=== PATIENT | female | born 1985 | race Caucasian/White ===

== ENCOUNTER 2023-04-30 15:11 | Emergency (ER) | payer BC ==
[~2023-04-30] VITALS: Ht 157.5 cm; Wt 84.8 kg
[2023-04-30 16:35] LABS: BASOPHILS 0.4 % (0-2); BILIRUBIN, URINE NEGATIVE (negative); BLOOD/HGB, URINE MODERATE (Negative); EOSINOPHILS 0.3 % (0-6); HEMATOCRIT 38.1 % (35.0-50.0); HEMOGLOBIN 12.4 g/dL (12.0-18.0); KETONE, URINE NEGATIVE (Negative); LEUK ESTERASE, URINE LARGE (negative); LYMPHOCYTES 10.8 % (24-44); MCH 30.3 (27-36); MCHC 32.7 g/dl (30-36); MCV 92.8 fl (81-99); MONOCYTES 5.7 % (0-12); NEUTROPHILS 82.8 % (39-80); NITRITE, URINE NEGATIVE (negative); PLATELET COUNT 295 K/uL (140-440); RDW 12.9 (10.5-15.0)
[2023-04-30 16:49] LABS: BACTERIA, URINE 1+ /hpf (negative); CASTS, URINE NONE SEEN \\lpf; COLLECTION TYPE, URINE XX; CRYSTALS, URINE NONE SEEN (0-1+); EPITHELIAL CELLS, URINE SQUAMOUS 1+ /lpf (0-1+); REFLEX CULTURE, URINE Yes (No); WHITE BLOOD CELLS, URINE >50 /HPF (0-5)
[2023-04-30 16:51] LABS: ALBUMIN 3.9 g/dL (3.4-5.0); ALBUMIN/GLOBULIN RATIO 0.89 (1.1-2.4); ANION GAP 15.4 (7-21); BILIRUBIN, TOTAL 0.4 ng/dL (0.2-1.0); BUN/CREATININE RATIO 5.43 (6.0-28.6); CALCIUM 9.1 mg/dL (8.5-10.1); CREATININE, SERUM 1.84 mg/dL (0.55-1.02); POTASSIUM 3.4 mmol/L (3.5-5.1); PROTEIN, TOTAL 8.3 g/dL (6.4-8.2)
[2023-04-30] MEDS ORDERED: CEPHALEXIN500 M1 PO (18:24)
[2023-04-30 19:10] VITALS: BP 120/80
== END 2023-04-30 19:11 | disposition home or self-care (01) ==
LOC: ED 15:11
PROVIDERS: Internal Medicine
DX: N39.0 Urinary tract infection, site not specified (principal); Q61.3 Polycystic kidney, unspecified; I12.9 Hypertensive chronic kidney disease with stage 1 through stage 4 chronic kidney disease, or unspecified chronic kidney disease; N18.30 Chronic kidney disease, stage 3 unspecified
CPT/HCPCS: 36415; 74176; 80053; 81001; 83690; 84703; 85025; 87088; 96365; 99284-25; J0696

== ENCOUNTER 2024-03-21 05:40 | Day surgery (SDC) | payer BC ==
[2024-03-12 14:53] VITALS: BP 116/79
[~2024-03-21] VITALS: Ht 157.5 cm; Wt 84.0 kg
--- NOTE | ~2024-03-21 | OR ---
[facility] [address], [place] [address] Draft DATE OF OPERATION: 03/21/2024 SURGEON: Chata Choe MD PREOPERATIVE DIAGNOSIS: Menorrhagia with irregular cycle. POSTOPERATIVE DIAGNOSES: 1. Menorrhagia with irregular cycle. 2. Endometrial polyps. 3. Bicornuate uterus. PROCEDURE: 1. Hysteroscopy. 2. Resection of polyps in both cavities. ANESTHESIA: MAC. ESTIMATED BLOOD LOSS: Minimal. DRAINS: None. INDICATIONS AND FINDINGS: The patient is a 38-year-old female who has a known bicornuate uterus. She has been having abnormal bleeding for the last several years. Ultrasounds showed some heterogeneous tissue in the endometrial cavities. On hysteroscopy, both cavities were evaluated. Both cavities had polyps, though the left side had more than the right. DESCRIPTION OF PROCEDURE: The patient was prepped and draped in the dorsal lithotomy position. A weighted speculum was placed. The anterior lip of the cervix was visualized and grasped with a single-tooth tenaculum. The cavity sounded 9 cm on the right. The endocervical canal was then easily dilated. The MyoSure device was placed and at first, the right cavity was evaluated. There were some small polyps, which were removed after placing the MyoSure Lite. Following this, the left cavity was evaluated. There were multiple small polyps within this cavity. The MyoSure Lite was used to resect all of these as well. Both cavities appeared clear of any lesions at the conclusion of the procedure. The PATIENT NAME: MIKE IZQUIERDO OPERATIVE REPORT DATE OF : [birth year] REPORT #: [id number] PHYSICIAN: CHATA CHOE MD PCP: CHAIM NAVAS REPORT IS CONFIDENTIAL AND NOT TO BE RELEASED WITHOUT AUTHORIZATION [address] [place], [place] [address] Draft MyoSure device was removed. The tenaculum was removed. There was no evidence of any ongoing bleeding from the tenaculum sites. The instruments removed. The patient was taken to the recovery room in good condition. MD ALEXI Hoffmann/VIKYL /[id number] Copies: ~ PATIENT NAME: MIKE IZQUIERDO OPERATIVE REPORT DATE OF : [birth year] REPORT #: [id number] PHYSICIAN: CHATA CHOE MD PCP: CHAIM NAVAS REPORT IS CONFIDENTIAL AND NOT TO BE RELEASED WITHOUT AUTHORIZATION
[~2024-03-21 05:40] MED LIST: CEPHALEXIN500 M1 PO; FLUOXETINE HCL20 M1 PO; IRON325 M1 PO; JYNARQUE PO; LACTATED RINGER'S 1,000 ML IV SCH; LISINOPRIL20 MG PO; OMEPRAZOLE20 MG PO; PEPCID AC20 MG PO; POTASSIUM CHLO10 ME1 PO; VIT D3-VIT K21 EACH PO
[2024-03-21 06:04] VITALS: BP 129/68
[2024-03-21] MEDS ORDERED: KETOROLAC TROMETHAMINE 30 MG/ML VIAL ONE (06:54)
[2024-03-21] MEDS ORDERED: propofoL 200 MG/20 ML VIAL ONE ×2 (06:54→07:33)
[2024-03-21] MEDS ORDERED: ondansetron HCL 4 MG/2 ML VIAL ONE (06:54)
[2024-03-21] MEDS ORDERED: LIDOCAINE HCL 2% 5 ML SDV ONE (06:56)
[2024-03-21] MEDS ORDERED: LIDOCAINE HCL 1% 5 ML SDV INJ ONE (07:00)
[2024-03-21] MEDS ORDERED: METOCLOPRAMIDE HCL 10 MG/2 ML SDV IV SCH (07:00)
[2024-03-21] MEDS ORDERED: IBLOOD GLUCOSE TEST STRIP 1 EA TEST VI PRN (07:00)
[2024-03-21] MEDS ORDERED: FAMOTIDINE 20 MG/ 2 ML VIAL IV SCH (07:00)
[2024-03-21] MEDS ORDERED: fentaNYL citrate 100 MCG/2 ML VIAL ONE (07:02)
[2024-03-21] MEDS ORDERED: IBUPROFEN 800 MG TAB PO PRN (07:45)
[2024-03-21] MEDS ORDERED: METOCLOPRAMIDE HCL 10 MG/2 ML SDV IV PRN (07:45)
[2024-03-21] MEDS ORDERED: PROCHLORPERAZINE EDISYLATE 10 MG/2 ML VIAL IV PRN (07:45)
[2024-03-21] MEDS ORDERED: LACTATED RINGER'S 1,000 ML IV SCH (07:45)
[2024-03-21] MEDS ORDERED: NALOXONE HCL 0.4 MG SYR IV PRN (07:45)
[2024-03-21] MEDS ORDERED: HYDROCODONE/ACETA 5/325 TAB PO PRN (07:45)
[2024-03-21] MEDS ORDERED: ondansetron HCL 4 MG TAB PO PRN (07:45)
[2024-03-21] MEDS ORDERED: MORPHINE SULFATE 10 MG/ML VIAL IV PRN (07:45)
[2024-03-21] MEDS ORDERED: MAGNESIUM HYDROXIDE/AL HYDROX 30 ML CUP PO PRN (07:45)
[2024-03-21] MEDS ORDERED: FAMOTIDINE 20 MG TAB PO PRN (07:45)
[2024-03-21] MEDS ORDERED: ondansetron HCL 4 MG/2 ML VIAL IV PRN (07:45)
[2024-03-21 08:18] VITALS: BP 127/72
--- NOTE | 2024-03-23 12:58 | PATH ---
[facility] [address] [place], [place] [address] Signed SPECIMEN(S): A ENDOMETRIAL POLYP SPECIMEN SOURCE: A. ENDOMETRIAL POLYP CLINICAL HISTORY: Menorrhagia and irregular cycle; bicornuate uterus FINAL PATHOLOGIC DIAGNOSIS: Endometrium, polypectomy: - Secretory phase endometrium; no hyperplasia or neoplasia identified - Fragments of the smooth muscle, suggestive of leiomyoma BRP MICROSCOPIC EXAMINATION: Histologic sections of all submitted blocks are examined by light microscopy. These findings, together with the gross examination, support the pathologic diagnosis. GROSS DESCRIPTION: The specimen, labeled and designated "Kimo Maeacco, endometrial polyp," is received in formalin and consists of irregular shaped membranous and hemorrhagic tissue fragments that aggregate measure 3.5 x 2.7 x 0.4 cm. Entirely submitted in (A1-A2). JS (under the direct supervision of a pathologist) The Gross Description was prepared using a voice recognition system. The report was reviewed for accuracy; however, sound-alike word errors, addition and/or deletions may occur. If there is any question about this report, please contact Client Services. ADDITIONAL NOTES: Immunohistochemical and/or in situ hybridization studies if performed in this case included appropriate positive controls that reacted as expected. This test was developed and its performance characteristics determined by [employer]. It has not been cleared or approved by the U.S. Food and Drug Administration. The FDA has determined that such clearance or approval is not necessary. This test is used for clinical purposes. It should not be regarded as investigational or for research. [employer] is certified under the Clinical Laboratory Improvement Amendments of 1988 (CLIA) as qualified to perform high complexity clinical PATIENT NAME: MIKE IZQUIERDO PATHOLOGY DATE OF : [birth year] REPORT #: [id number] PHYSICIAN: MATT ANTHONY PCP: CHAIM NAVAS REPORT IS CONFIDENTIAL AND NOT TO BE RELEASED WITHOUT AUTHORIZATION [facility] [address] [place], [place] [address] Signed laboratory testing. PERFORMING LABORATORY: Technical component was performed by [employer], [address] [place] [address] (CLIA# [id number]). Professional interpretation was performed by [facility], [address] [place] [address] (CLIA#: [id number]). Diagnostician: Shan Fox MD Pathologist Electronically Signed 03/23/2024 Copies: ~ PATIENT NAME: MIKE IZQUIERDO PATHOLOGY DATE OF : [birth year] REPORT #: [id number] PHYSICIAN: MATT ANTHONY PCP: CHAIM NAVAS REPORT IS CONFIDENTIAL AND NOT TO BE RELEASED WITHOUT AUTHORIZATION
== END 2024-03-21 08:25 | disposition home or self-care (01) ==
LOC: DS 05:40
PROVIDERS: ATTEND Obstetrics & Gynecology
PROC: 0UB98ZZ Excision of Uterus, Via Natural or Artificial Opening Endoscopic (ICD-10-PCS; principal; 2024-03-21 07:30)
DX: N84.0 Polyp of corpus uteri (principal); Q51.3 Bicornate uterus; I12.9 Hypertensive chronic kidney disease with stage 1 through stage 4 chronic kidney disease, or unspecified chronic kidney disease; N18.31 Chronic kidney disease, stage 3a; Z79.899 Other long term (current) drug therapy
CPT/HCPCS: 00952; J1885; J2001; J2405; J2704; J2765; J3010

== ENCOUNTER 2024-06-19 05:51 | Day surgery (SDC) | payer BC ==
[~2024-06-19] VITALS: Ht 157.5 cm; Wt 89.5 kg
[~2024-06-19 05:51] MED LIST changes: +ALLEGRA HIVES180 MG PO
[2024-06-19 06:04] VITALS: BP 146/96
[2024-06-19] MEDS ORDERED: LACTATED RINGER'S 1,000 ML IV ONE (06:29)
[2024-06-19] MEDS ORDERED: ROCURONIUM BROMIDE 50 MG/5 ML SYR ONE (06:29)
[2024-06-19] MEDS ORDERED: fentaNYL citrate 100 MCG/2 ML VIAL ONE (06:29)
[2024-06-19] MEDS ORDERED: SUCCINYLCHOLINE IN 0.9% NACL 200 MG/10 ML SYRINGE ONE (06:29)
[2024-06-19] MEDS ORDERED: propofoL 200 MG/20 ML VIAL ONE ×2 (06:29→07:16)
[2024-06-19] MEDS ORDERED: MIDAZOLAM HCL 2 MG/2 ML VIAL ONE (06:29)
[2024-06-19] MEDS ORDERED: KETOROLAC TROMETHAMINE 30 MG/ML VIAL ONE (06:29)
[2024-06-19] MEDS ORDERED: SUGAMMADEX SODIUM 200 MG/2 ML ML ONE (06:29)
[2024-06-19] MEDS ORDERED: METOCLOPRAMIDE HCL 10 MG/2 ML SDV ONE (06:29)
[2024-06-19] MEDS ORDERED: ondansetron HCL 4 MG/2 ML VIAL ONE (06:29)
[2024-06-19] MEDS ORDERED: FAMOTIDINE 20 MG/ 2 ML VIAL ONE (06:29)
[2024-06-19] MEDS ORDERED: LIDOCAINE HCL 4% 5 ML AMP ONE (06:29)
[2024-06-19] MEDS ORDERED: DEXAMETHASONE SOD PHOS 4 MG/ML VIAL ONE (06:29)
[2024-06-19] MEDS ORDERED: ALBUTEROL SULFATE 8 GM INH ONE (06:32)
[2024-06-19] MEDS ORDERED: ALBUTEROL/IPRATROPIUM 3 ML NEB ONE (06:35)
[2024-06-19] MEDS ORDERED: CEFAZOLIN SODIUM 2 GM/20 ML SYR IV SCH (07:00)
[2024-06-19] MEDS ORDERED: HEParin SOD (PORCINE) 5,000 UNIT/0.5 ML SYR SUB-Q SCH (07:00)
[2024-06-19] MEDS ORDERED: METOCLOPRAMIDE HCL 10 MG/2 ML SDV IV SCH (07:00)
[2024-06-19] MEDS ORDERED: FAMOTIDINE 20 MG/ 2 ML VIAL IV SCH (07:00)
[2024-06-19] MEDS ORDERED: LIDOCAINE HCL 1% 5 ML SDV INJ ONE (07:00)
[2024-06-19] MEDS ORDERED: IBLOOD GLUCOSE TEST STRIP 1 EA TEST VI PRN ×2 (07:00→08:15)
[2024-06-19] MEDS ORDERED: ACETAMINOPHEN 1,000 MG/100 ML VIAL ONE (07:22)
--- NOTE | 2024-06-19 07:31 | NUR ---
PT GONE FOR PROCEDURE. PROVIDED PRAYER.
[2024-06-19] MEDS ORDERED: FLUORESCEIN SODIUM 500 MG/5 ML ML ONE (08:00)
[2024-06-19] MEDS ORDERED: MORPHINE SULFATE 10 MG/ML VIAL IV PRN ×2 (08:15→09:30)
[2024-06-19] MEDS ORDERED: fentaNYL citrate 50 MCG/ML SDV IV PRN (08:15)
[2024-06-19] MEDS ORDERED: NALOXONE HCL 0.4 MG SYR IV PRN ×2 (08:15→09:30)
[2024-06-19] MEDS ORDERED: PROCHLORPERAZINE EDISYLATE 10 MG/2 ML VIAL IV PRN ×2 (08:15→09:30)
[2024-06-19] MEDS ORDERED: droPERidol 5 MG/2 ML VIAL IV PRN (08:15)
[2024-06-19] MEDS ORDERED: METOCLOPRAMIDE HCL 10 MG/2 ML SDV IV PRN ×2 (08:15→09:30)
[2024-06-19] MEDS ORDERED: ondansetron HCL 4 MG/2 ML VIAL IV PRN ×2 (08:15→09:30)
[2024-06-19] MEDS ORDERED: FAMOTIDINE 20 MG TAB PO PRN (09:30)
[2024-06-19] MEDS ORDERED: MAGNESIUM HYDROXIDE/AL HYDROX 30 ML CUP PO PRN (09:30)
[2024-06-19] MEDS ORDERED: ondansetron HCL 4 MG TAB PO PRN (09:30)
[2024-06-19] MEDS ORDERED: ACETAMINOPHEN 500 MG TAB PO PRN (09:30)
[2024-06-19] MEDS ORDERED: LACTATED RINGER'S 1,000 ML IV SCH (09:30)
[2024-06-19] MEDS ORDERED: OXYCODONE HCL 5 MG TAB PO PRN (09:30)
[2024-06-19] MEDS ORDERED: LIDOCAINE 2% VISCOUS 6 ML SYR TOP ONE (09:30)
--- NOTE | 2024-06-19 09:35 | NUR ---
06/19/24 0935 Khushboo Kwan 0915 PT ARRIVED IN PACU NON RESPONSIVE TO NOXIOUS STIMULI WITH OPA IN PLACE. SHIVERING. 0918 PT REACTIVE. OPA REMOVED. MISBAH PAWS AND WARM BLANKETS PLACED. 0925 AT BEDSIDE.
[2024-06-19 10:10] VITALS: BP 125/50
--- NOTE | 2024-06-19 10:25 | NUR ---
1010 pt arrived to day surgery via streacher. pt awake but drowsey. pt reporting 4/10 tolerable pain. pt sipping water. montitors attached. pt breathing equal and unlabored, pt has 2l via o2 via nc. pt in room. pt has call light within reach, water and snacks within reach. 1015 lowered pt to 1l o2 via nasal canulla, pt oxygen sat staying above 90%.
--- NOTE | 2024-06-19 10:53 | NUR ---
1035 CHECKED ON PT, PT REMOVED FROM OXYGEN. PT OXYGEN SATURATION STAYING ABOVE 96% ON RA. PT REPORTING UNTOLERABLE 6/10 PAIN. 1048 PAIN MEDICATIONS GIVEN PER EMAR. WARM BLANKETS APPLIED. CALL LIGHT WITHIN REACH, PERSONAL ITEMS WITHIN REACH. AT BEDSIDE.
[2024-06-19 11:13] VITALS: BP 127/73
--- NOTE | 2024-06-19 11:25 | NUR ---
1111 HOURLY ROUNDING DONE WITH PT. PT REPORTS 5/10 PAIN, DISCUSSED GETTING ANOTHER PAIN PILL. PT WOULD LIKE TO WAIT BEFORE TAKING ANOTHER PAINB PILL. VITALS TAKEN. PT RESTING COMFORTABLY IN BED. PT REPORTS NO NEED TO URINATE YET. WATER FILLED. PT HAS CALL LIGHT WITHIN REACH AND PERSONAL ITEMS WITHIN REACH.
--- NOTE | 2024-06-19 11:39 | NUR ---
1381 pt used call light to alert rn that pt needs to urinate. pt up to bathroom able to ambulate on own. gait steady.
--- NOTE | 2024-06-19 11:44 | NUR ---
1143 PT ABLE TO VOID 300 MLS OF CLEAR YELLOW URINE. PT REPORTS PAIN BEING TOLERABLE. PT GETTING DRESSED WITH ASSISTANCE IN ROOM.
--- NOTE | 2024-06-19 12:07 | NUR ---
1150 DISCHARGE INSTRUCTIONS GONE OVER WITH PT, IV DISCONTINUED. PT HAS NO QUESTIONS AT THIS TIME. PT REPORTING TOLERABLE LEVEL OF PAIN AT THIS TIME. PT REPORTING NO NAUSEA, PT HAS BEEN ABLE TO VOID, AND TOLERATE PO FLUIDS AND SNACKS. 1200 PT DISCHARGED FROM DAY SURGERY VIA WHEELCHAIR TO THE FRONT OF THE HOSPITAL TO PT'S HUSBANDS CAR.
--- NOTE | 2024-06-25 13:06 | OR ---
[facility] [address] [place], [place] [address] Signed DATE OF OPERATION: 06/19/2024 SURGEON: Chata Choe MD DATA WAREHOUSING SPECIALIST: JOSHUA Wall DO PREOPERATIVE DIAGNOSES: 1. Menorrhagia with irregular cycle. 2. Bicornuate uterus. POSTOPERATIVE DIAGNOSES: 1. Menorrhagia with irregular cycle. 2. Bicornuate uterus. 3. Pelvic endometriosis. PROCEDURES: 1. Total laparoscopic hysterectomy with bilateral salpingectomy. 2. Cystoscopy. 3. Excision of pelvic endometriosis. 4. Cannulation of the left ureter. ANESTHESIA: General ET. ESTIMATED BLOOD LOSS: 25 mL. DRAINS: Sanches catheter. INDICATIONS AND FINDINGS: The patient is a 38-year-old female, who has been having worsening problems with her periods. She has not tolerated oral contraceptives. Hysteroscopy did not improve her cycles. She was not a candidate for an IUD given the bicornuate uterus. At the time of surgery, exam under anesthesia was normal. At the time of laparoscopy, she had normal ovaries. She had evidence of prior tubal ligation with some scarring along the tubes. The uterus appeared overall fairly normal other than a slight indentation at the fundus. There was some endometriosis in the left anterior cul-de-sac, the right uterosacral ligament and in the cul-de-sac. Electronically Signed By: CHATA CHOE MD 06/25/24 1306 PATIENT NAME: MIKE IZQUIERDO OPERATIVE REPORT DATE OF : [birth year] REPORT #: [id number] PHYSICIAN: CHATA CHOE MD PCP: CHAIM NAVAS PAC REPORT IS CONFIDENTIAL AND NOT TO BE RELEASED WITHOUT AUTHORIZATION [facility] [address] [place], [place] [address] Signed DESCRIPTION OF PROCEDURE: The patient was prepped and draped in the dorsal lithotomy position. Attention was directed above first such that the VCare could be placed under direct vision. The infraumbilical area was injected with 0.5% Marcaine plain. An incision was made with a knife. Each layer was serially elevated and incised until the fascia was opened and identified. Stay sutures of 0-Vicryl were placed. Peritoneum was opened bluntly and the Kvng placed. The balloon was inflated. There was difficulty keeping the balloon in place and this was removed and the fascial incision was made somewhat smaller with a obwyib-rz-hwrah suture of 0-Vicryl. Kvng was then replaced and the balloon inflated. The pelvis was then evaluated and the planned procedure appeared appropriate. Attention was directed down below, weighted speculum was placed after placement of the Sanches. Cervix was visualized and grasped with single-tooth tenaculum. The right-sided horn was then cannulated and sounded to 9 cm. The endocervical canal was then dilated and the VCare placed and the balloon inflated at the fundus. This was done under direct vision to avoid perforation. Following this, the tenaculum was removed. The cup was fitted over the cervix and a locking cap fitted into place. Attention was then redirected above. The secondary ports were then placed. These were placed laterally, slightly below the level of the umbilicus. Each of these areas was transilluminated, injected with the Marcaine, incision made with a knife and trocars placed under direct vision. The left-sided port was a 5 mm port and the right-sided was a Veress needle with the expanding port. The LigaSure [place] device was then used to excise the patient's left tube. The mesosalpinx was serially coagulated and divided and the specimen removed at the cornu and the specimen retrieved. The utero-ovarian ligament on the patient's right side was then serially coagulated and divided. Attention was then directed back to the left and the utero-ovarian ligament was serially coagulated and divided. The round ligament was divided after coagulation as well. The anterior peritoneum was taken down creating a partial bladder flap. The patient's peritoneum was taken down posteriorly as well. The uterine vessels were then skeletonized and coagulated multiple times and divided. Further dissection was done both posteriorly and anteriorly. There was minimal scarring from her prior C-sections. Attention was then directed to the patient's right side. The tube was removed in the same manner after serially coagulating, dividing the mesosalpinx. The Filshie clamp was mostly adhered to the ovary and this was separately excised and retrieved. The specimen was divided at the cornu and the specimen removed through the port. The round ligament was then serially coagulated and divided. The anterior leaf of the peritoneum incised completing the bladder flap. The peritoneum was taken down posteriorly as well. The uterine vessels were then coagulated and divided multiple times. Further dissection was done both posteriorly and anteriorly. At this point, it was felt the specimen could be from the cuff. Sonicision device was used to separate the vaginal cuff from the specimen. After separation, the specimen was retrieved vaginally and a glove with a wet lap was placed into the vagina allowing the pneumoperitoneum to reaccumulate. The cuff Electronically Signed By: CHATA CHOE MD 06/25/24 1306 PATIENT NAME: SREE WILLARDMIKE MORALES OPERATIVE REPORT DATE OF : [birth year] REPORT #: [id number] PHYSICIAN: CHATA CHOE MD PCP: CHAIM NAVAS REPORT IS CONFIDENTIAL AND NOT TO BE RELEASED WITHOUT AUTHORIZATION [facility] [address] [place], [place] [address] Signed was evaluated and appeared to be hemostatic. The Endo Stitch was then used to close the cuff, taking care to incorporate both the vaginal mucosa as well as the peritoneum. This was begun at the patient's right uterosacral ligament and carried to the patient's left and back. An attempt was made to also do a superficial stitch on the patient's right side slightly above the uterosacral ligament, but at this point, the needle broke. The remaining piece was retrieved and measured 5 mm. The broken piece in the vaginal cuff could not be found. Because of the ongoing bleeding in the superficial area of the right cuff, a second endostitch was used to superficially close this area and run to the center and back to the uterosacral ligament. Good hemostasis was noted. The pelvis was irrigated and inspected and appeared hemostatic but with a wide dissection area. The endometriosis on the right uterosacral ligament had been excised with the specimen as was the anterior cul-de-sac endometriosis. The endometriosis in the cul-de-sac was very close to the rectum and this was not excised. The pelvis was sprayed with Tisseel to assure hemostasis. The instruments were removed from the abdomen after allowing as much CO2 to escape. The fascial incision at the umbilicus was closed with a running suture of 0-Vicryl. The stay sutures were tied as well. The skin incisions were closed with subcuticular sutures of 4-0 Vicryl Rapide. Attention was directed below and the vaginal glove removed. The cuff was carefully palpated and the tiny broken piece of needle could not be identified. The Sanches was removed and cystoscopy done. She had received IV fluorescein. There was no evidence of any bladder injury. The patient's right ureter had clear urine freely egressing. The patient's left ureter had no evidence of urine flow despite prolonged observation. Because of this, the cystoscope was removed and replaced by the 21 Kiswahili sheath and the left ureter was cannulated with a 4 mm whistle tip. There was easy passage of the cannula and clear urine seen after removal of the cannula. The bladder was drained and the Sanches replaced. All sponge and needle counts were correct other than the tiny piece of the EndoStitch. The patient tolerated the procedure well and was taken to the recovery room in good condition. Chata Choe MD PJW/MODL /[id number] Electronically Signed By: CHATA CHOE MD 06/25/24 1306 PATIENT NAME: MIKE IZQUIERDO OPERATIVE REPORT DATE OF : [birth year] REPORT #: [id number] PHYSICIAN: CHATA CHOE MD PCP: CHAIM NAVAS PAC REPORT IS CONFIDENTIAL AND NOT TO BE RELEASED WITHOUT AUTHORIZATION [address] [address] Signed Copies: ~ Electronically Signed By: CHATA CHOE MD 06/25/24 1306 PATIENT NAME: MIKE IZQUIERDO OPERATIVE REPORT DATE OF : [birth year] REPORT #: [id number] PHYSICIAN: CHATA CHOE MD PCP: CHAIM NAVAS PAC REPORT IS CONFIDENTIAL AND NOT TO BE RELEASED WITHOUT AUTHORIZATION
--- NOTE | 2024-06-25 14:13 | PATH ---
[facility] [address] [place], [place] [address] Signed SPECIMEN(S): A UTERUS, CERVIX, BILATERAL TUBES SPECIMEN SOURCE: A. 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 - Early secretory endometrium, negative for hyperplasia or atypia. - Superficial benign endometrial adenomyosis. - Benign endo- and ectocervix. - Two segments of benign oviduct. - Incidental benign paratubal serous cyst. JVR:january MICROSCOPIC EXAMINATION: Histologic sections of all submitted blocks are examined by light microscopy. These findings, together with the gross examination, support the pathologic diagnosis. GROSS DESCRIPTION: The specimen, labeled and designated "Sree Nevarez, uterus, cervix, bilateral fallopian tubes," is received in formalin and consists of uterus and cervix with two undesignated and fallopian tubes and one cyst-like tissue fragment. The uterus measures 4.5 cm from cornu to cornu, 2.7 cm from anterior to posterior and 6.5 cm from cervix to fundus. The serosal surface is violaceous and smooth. The uterus weighs 75 g. The ectocervix is pink-hinds, smooth and measures 4.0 x 3.3 cm. It shows two cervical canal openings. Both are patents. The endometrial cavity is complete septate with two completely and patent previously described cervical canal openings. The endometrial cavities measure 2.2 x 0.6 cm each. They are lined with pink-hinds, smooth endometrium. Sectioning through myometrium reveals pink-hinds homogenous tissue. The myometrium measures 1.3 cm in thickness and endometrial measures up to 0.1 cm in thickness. Both fallopian tubes show fimbria and violaceous and smooth serosa. The first PATIENT NAME: MIKE IZQUIERDO PATHOLOGY DATE OF : [birth year] REPORT #: [id number] PHYSICIAN: MATT PATHOLOGY PCP: CHAIM NAVAS PAC REPORT IS CONFIDENTIAL AND NOT TO BE RELEASED WITHOUT AUTHORIZATION [facility] [address] [place], [place] [address] Signed fallopian tube was previously ligated and measured 8 cm in length and up to 0.7 cm in diameter. The second fallopian tube measures 4 cm in length and 0.7 cm in diameter. Sectioning through both fallopian tubes is grossly unremarkable. The cyst-like tissue fragment measures 1.7 x 1.7 x 0.9 cm. Sectioning through the specimen reveals cyst that that is filled with a clear fluid. Cassette Summary: (A1-A2) 2 cervical canal openings, hospital sales representative sections, posterior inked (A3-A4) endomyometrium, hospital sales representative sections (A5) the first fallopian tube, hospital sales representative sections (A6) second fallopian tube, hospital sales representative sections (A7) cyst-like tissue fragment, hospital sales representative sections JS (under the direct supervision of a pathologist) The Gross Description was prepared using a voice recognition system. The report was reviewed for accuracy; however, sound-alike word errors, addition and/or deletions may occur. If there is any question about this report, please contact Client Services. PERFORMING LABORATORY: Technical component was performed by [email or web address], [address] [place] [id number] (CLIA# [id number]). Professional interpretation was performed by [facility], [address] [place] [address], [place] [address] (CLIA#: [id number]). Diagnostician: Fermín Sigala MD Pathologist Electronically Signed 06/25/2024 Copies: ~ PATIENT NAME: SREEMIKE ANDERSON PATHOLOGY DATE OF : [birth year] REPORT #: [id number] PHYSICIAN: MATT PATHOLOGY PCP: CHAIM NAVAS PAC REPORT IS CONFIDENTIAL AND NOT TO BE RELEASED WITHOUT AUTHORIZATION
== END 2024-06-19 12:00 | disposition home or self-care (01) ==
LOC: DS 05:51
PROVIDERS: ATTEND Obstetrics & Gynecology
PROC: 0UB74ZZ Excision of Bilateral Fallopian Tubes, Percutaneous Endoscopic Approach (ICD-10-PCS; 2024-06-19)
PROC: 0TJB8ZZ Inspection of Bladder, Via Natural or Artificial Opening Endoscopic (ICD-10-PCS; 2024-06-19)
PROC: 0UT94ZZ Resection of Uterus, Percutaneous Endoscopic Approach (ICD-10-PCS; principal; 2024-06-19 07:30)
DX: N80.03 Adenomyosis of the uterus (principal); N83.8 Other noninflammatory disorders of ovary, fallopian tube and broad ligament; N92.1 Excessive and frequent menstruation with irregular cycle; Q51.3 Bicornate uterus; I12.9 Hypertensive chronic kidney disease with stage 1 through stage 4 chronic kidney disease, or unspecified chronic kidney disease; N18.31 Chronic kidney disease, stage 3a; D50.9 Iron deficiency anemia, unspecified; F33.1 Major depressive disorder, recurrent, moderate; Z79.899 Other long term (current) drug therapy
CPT/HCPCS: 00840; A9270; J0131; J0330; J0690; J1100; J1644; J1885; J2250; J2405; J2704; J2765; J3010; J3490; J7121